=== PATIENT | female | born 1980 | race Caucasian/White ===

== ENCOUNTER 2017-08-05 11:35 | Emergency (ER) | payer OTHER ==
[2017-08-05] MEDS ORDERED: Ondansetron ODT 4 MG TAB ONE (12:33)
[2017-08-05] MEDS ORDERED: Ketorolac Tromethamine 60 MG/2 ML VIAL ONE (12:33)
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
== END 2017-08-05 13:10 | disposition home or self-care (01) ==
LOC: ERS 11:35
DX: M54.5 Low back pain (principal); F17.210 Nicotine dependence, cigarettes, uncomplicated; Z79.891 Long term (current) use of opiate analgesic; Z79.899 Other long term (current) drug therapy; V43.62XA Car passenger injured in collision with other type car in traffic accident, initial encounter
CPT/HCPCS: 72100; 72220; 96372; 99406; J1885; Q0162

== ENCOUNTER 2017-09-17 08:34 | Outpatient (CLI) | payer OTHER ==
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
[2017-09-17] MEDS ORDERED: Gadobenate Dimeglumine 529 MG/1 ML (20ML VIAL) ONE (14:07)
== END 2017-09-17 08:35 | disposition home or self-care (01) ==
LOC: TBSIIMAG 08:34
PROVIDERS: ATTEND Neurological Surgery
DX: M54.5 Low back pain (principal); M54.6 Pain in thoracic spine; M43.16 Spondylolisthesis, lumbar region
CPT/HCPCS: 72146; 72158; A9579

== ENCOUNTER 2018-04-12 08:40 | Outpatient (CLI) | payer OTHER | END 2018-04-12 08:41 | disposition home or self-care (01) | LOC: BICMAMMO 08:40 | PROVIDERS: ATTEND Family Medicine | DX: N63.31 Unspecified lump in axillary tail of the right breast (principal); Z80.3 Family history of malignant neoplasm of breast | CPT/HCPCS: 77066; G0279 ==

== ENCOUNTER 2021-11-15 13:51 | Emergency (ER) | payer OTHER ==
[2021-11-15 14:29] LABS: Bacteria/HPF None Seen HPF (None Seen); Bilirubin Negative (Negative); Blood, Urine 3+ (Negative); Clarity Clear (Clear); Glucose, Urine (Dipstick) Normal (Negative); Ketone, Urine Negative (Negative); Leukocyte Negative Leu/uL (Negative); Nitrite Negative (Negative); Protein, Urine (Dipstick) 30 mg/dL (Neg-Trace); RBC/HPF Greater than 50 HPF (0-3); Specific Gravity, Urine 1.018 (1.002-1.036); Squamous Epithelial 0-3 HPF (0-3); Urobilinogen Normal mg/dL (Less than 2); pH, Urine 6.5 (5.0-9.0)
[2021-11-15 14:32] LABS: #Eosinphils 0.2 thou/uL (0.0-0.7); #Lymphocytes 1.6 thou/uL (1.20-3.40); #Monocytes 0.4 thou/uL (0.11-0.59); %Basophils 0.4 % (0.0-1.0); %Eosinophils 2.7 % (0.0-10.0); %Lymphocytes 26.2 % (21.0-51.0); %Monocytes 6.6 % (0.0-10.0); %Neutrophils 64.2 % (42.0-75.0); Hemoglobin 14.9 g/dL (12.0-16.0); Mean Corpuscular HGB CONC 32.9 g/dL (32.0-36.0); Mean Corpuscular Hemoglobin 27.6 pg (27.0-31.0); Mean Corpuscular Volume 83.8 fL (78.0-98.0); Platelet Count 184 thou/uL (130-400); RBC Distribution Width 12.3 % (11.5-14.5); Red Blood Cell (RBC) Count 5.39 mill/uL (4.20-5.40); White Blood Cell (WBC) Count 6.2 thou/uL (4.8-10.8)
[2021-11-15 14:45] LABS: BHCG - Serum Negative (NEGATIVE); Pregs Control Background? CLEAR/WHITE (CLR/WHITE); Pregs Control Bar Appear? YES (CONTROL BAR)
[2021-11-15] MEDS ORDERED: Ketorolac Tromethamine 30 MG/ML VIAL ONE (14:45)
[2021-11-15 14:47] LABS: ALT (SGPT) 27 U/L (8-55); AST (SGOT) 23 U/L (5-34); Albumin 4.7 g/dL (3.5-5.0); Alkaline Phosphatase 72 U/L (40-110); Anion Gap 10 mmol/L (10-20); BUN (Urea Nitrogen) 15 mg/dL (7.0-18.7); Bilirubin, Total 1.1 mg/dL (0.2-1.2); Calc. Creatinine Clearance 0 mL/min (70-130); Carbon Dioxide 30 mmol/L (22-29); Chloride 103 mmol/L (98-107); Globulin 3.1 g/dL (2.4-3.5); Glucose 105 mg/dL (70-105); Potassium 3.7 mmol/L (3.5-5.1); Protein, Total 7.8 g/dL (6.0-8.3); Sodium 139 mmol/L (136-145)
[2021-11-15] MEDS ORDERED: Morphine 4 MG/ML VIAL ONE (16:11)
== END 2021-11-15 17:42 | disposition home or self-care (01) ==
LOC: ERS 13:51
DX: N20.0 Calculus of kidney (principal); H54.8 Legal blindness, as defined in USA
CPT/HCPCS: 36415; 74176; 80053; 81003; 81015; 84703; 85025; 94760; 96372; 96374; J1885; J2270

== ENCOUNTER 2023-08-20 12:43 | Observation (INO) | payer OTHER ==
[2023-08-20] MEDS ORDERED: fentaNYL PF 100 MCG/2 ML SYRINGE ONE (13:37)
[2023-08-20] MEDS ORDERED: PROPOFOL 20 ML ONE (13:37)
[2023-08-20] MEDS ORDERED: Lidocaine 1% PF 5 ML VIAL ONE ×2 (13:38→13:41)
[2023-08-20] MEDS ORDERED: PROPOFOL 200 MG/20 ML VIAL ONE (13:41)
[2023-08-20] MEDS ORDERED: Ondansetron PF 4 MG/2 ML Vial ONE ×3 (13:41→15:10)
[2023-08-20] MEDS ORDERED: Oxybutynin 5 MG TAB ONE ×2 (14:59→15:19)
[2023-08-20] MEDS ORDERED: Phenazopyridine HCl 100 MG TAB ONE ×2 (14:59→15:19)
[2023-08-20] MEDS ORDERED: fentaNYL 50 mcg/mL 1 mL Vial ONE ×3 (15:00→15:38)
[2023-08-20] MEDS ORDERED: diphenhydrAMINE 50 MG/ML VIAL ONE (15:24)
[2023-08-20] MEDS ORDERED: Promethazine 25 MG TAB ONE (15:24)
[2023-08-20] MEDS ORDERED: hydrALAZINE 20 MG/ML VIAL ONE (15:38)
[2023-08-20] MEDS ORDERED: Promethazine HCl 25 MG SUPP PR SCH (16:30)
[2023-08-20] MEDS ORDERED: HYDROmorphone 0.5 MG/0.5 ML SYRINGE ONE ×2 (16:41→17:32)
[2023-08-20] MEDS ORDERED: Acetaminophen 325 MG TAB PO PRN (17:37)
[2023-08-20] MEDS ORDERED: Ondansetron PF 4 MG/2 ML Vial IVP PRN (17:37)
[2023-08-20] MEDS ORDERED: Ondansetron ODT 4 MG TAB PO PRN (17:37)
[2023-08-20] MEDS ORDERED: Metoclopramide HCl 10 MG/2 ML VIAL IVP PRN (18:02)
[2023-08-20 18:57] LABS: #Monocytes 0.7 thou/uL (0.11-0.59); #Neutrophils 11.8 thou/uL (1.40-6.50); %Basophils 0.2 % (0.0-1.0); %Eosinophils 0.3 % (0.0-10.0); %Lymphocytes 6.2 % (21.0-51.0); %Monocytes 5.4 % (0.0-10.0); %Neutrophils 87.5 % (42.0-75.0); Hematocrit 44.8 % (36.0-47.0); Hemoglobin 14.8 g/dL (12.0-16.0); Mean Corpuscular Hemoglobin 27.4 pg (27.0-31.0); Mean Corpuscular Volume 82.8 fl (78.0-98.0); Mean Platelet Volume 9.3 fL (7.4-10.4); Platelet Count 172 10x3/uL (130-400); Red Blood Cell (RBC) Count 5.41 mill/uL (4.20-5.40); White Blood Cell (WBC) Count 13.5 10x3/uL (4.8-10.8)
[2023-08-20 19:19] LABS: Anion Gap 15 mmol/L (10-20); BUN (Urea Nitrogen) 13 mg/dL (7.0-18.7); Calc. Creatinine Clearance 0 mL/min (70-130); Calcium 8.9 mg/dL (7.8-10.44); Carbon Dioxide 21 mmol/L (22-29); Chloride 105 mmol/L (98-107); Estimated GFR 108; Glucose 126 mg/dL (70-105); Magnesium 1.8 mg/dL (1.6-2.6); Potassium 3.5 mmol/L (3.5-5.1); Sodium 137 mmol/L (136-145)
[2023-08-20] MEDS: Morphine 2 MG/ML VIAL SLOW IVP PRN (20:08)
[2023-08-20] MEDS: Sodium Chloride 0.9% 1,000 ML IV SCH (20:15)
[2023-08-20 22:21] VITALS: BMI 35.6
[2023-08-21] MEDS: Morphine 2 MG/ML VIAL SLOW IVP PRN ×3 (00:14→10:18)
[2023-08-21] MEDS: Sodium Chloride 0.9% 1,000 ML IV SCH (05:20)
[2023-08-21 07:52] VITALS: TEMP 98.5
[2023-08-21] MEDS ORDERED: Phenazopyridine HCl 100 MG TAB PO SCH (09:00)
[2023-08-21] MEDS ORDERED: traMADol HCl 50 MG TAB PO PRN (10:07)
[2023-08-21] MEDS ORDERED: Oxybutynin 5 MG TAB PO SCH ×2 (10:15→15:00)
[2023-08-21 12:03] VITALS: BP 147/88
== END 2023-08-21 12:00 | disposition home or self-care (01) ==
LOC: INTOOBSV 12:43 → 2NO 12:43 → SURG A 18:19
PROVIDERS: ADMIT Urology; ATTEND Internal Medicine
PROC: 0TC18ZZ Extirpation of Matter from Left Kidney, Via Natural or Artificial Opening Endoscopic (ICD-10-PCS; principal; 2023-08-21)
PROC: 0TC08ZZ Extirpation of Matter from Right Kidney, Via Natural or Artificial Opening Endoscopic (ICD-10-PCS; 2023-08-21)
PROC: 0T788DZ Dilation of Bilateral Ureters with Intraluminal Device, Via Natural or Artificial Opening Endoscopic (ICD-10-PCS; 2023-08-21)
DX: N20.1 Calculus of ureter (principal); Z79.899 Other long term (current) drug therapy; R11.2 Nausea with vomiting, unspecified; D72.829 Elevated white blood cell count, unspecified; Z90.49 Acquired absence of other specified parts of digestive tract; Z90.710 Acquired absence of both cervix and uterus
CPT/HCPCS: 36415; 74176; 80048; 80053; 81001; 82365; 83735; 85025; 88300; 93005; 93010; 96374; 96375; 96376; C1747; C1769; C2617; G0378; J0360; J0696; J1170; J1200; J1885; J2270; J2272; J2405; J2704; J2765; J3010; J3490; J7050; Q0169

== ENCOUNTER 2024-09-15 12:54 | Emergency (ER) | payer OTHER ==
[2024-09-15 13:55] LABS: #Basophils 0.03 10x3/uL (0.0-0.2); %Basophils 0.6 % (0.0-1.0); %Eosinophils 3.1 % (0.0-10.0); %Lymphocytes 30.8 % (21.0-51.0); %Monocytes 7.4 % (0.0-10.0); %Neutrophils 57.9 % (42.0-75.0); Hematocrit 42.8 % (36.0-47.0); Hemoglobin 14.2 g/dL (12.0-16.0); Mean Corpuscular HGB CONC 33.2 g/dL (32.0-36.0); Mean Corpuscular Hemoglobin 26.8 pg (27.0-31.0); Mean Corpuscular Volume 80.8 fL (78.0-98.0); Mean Platelet Volume 9.4 fL (7.4-10.4); Platelet Count 192 10x3/uL (130-400); RBC Distribution Width 13.2 % (11.5-14.5)
[2024-09-15 14:03] LABS: BHCG - Serum Negative (NEGATIVE); Pregs Control Background? CLEAR/WHITE (CLR/WHITE); Pregs Control Bar Appear? YES (CONTROL BAR)
[2024-09-15 14:12] LABS: ALT (SGPT) 12 U/L (8-55); AST (SGOT) 15 U/L (5-34); Albumin 4.1 g/dL (3.5-5.0); Alkaline Phosphatase 57 U/L (40-110); Anion Gap 12 mmol/L (10-20); BUN (Urea Nitrogen) 11 mg/dL (7.0-18.7); Bilirubin, Total 1.1 mg/dL (0.2-1.2); Calc. Creatinine Clearance 0 mL/min (70-130); Calcium 9.3 mg/dL (7.8-10.44); Carbon Dioxide 23 mmol/L (22-29); Chloride 108 mmol/L (98-107); Estimated GFR 105; Globulin 3.1 g/dL (2.4-3.5); Glucose 90 mg/dL (70-105); Potassium 4.1 mmol/L (3.5-5.1); Protein, Total 7.2 g/dL (6.0-8.3); Sodium 139 mmol/L (136-145)
[2024-09-15] MEDS ORDERED: Morphine 4 MG/ML VIAL ONE ×2 (15:31→15:33)
[2024-09-15] MEDS ORDERED: Ketorolac Tromethamine 30 MG (1 mL) VIAL ONE (15:32)
[2024-09-15] MEDS ORDERED: Ondansetron PF 4 MG/2 ML Vial ONE (15:32)
[2024-09-15 15:55] LABS: Bacteria/HPF None Seen HPF (None Seen); Bilirubin Negative (Negative); Blood, Urine 3+ (Negative); CAUTI Indications for Culture Dysuria,urgency,freq; Clarity Clear (Clear); Glucose, Urine (Dipstick) Normal (Negative); Ketone, Urine Negative (Negative); Leukocyte Negative Leu/uL (Negative); Nitrite Negative (Negative); Protein, Urine (Dipstick) 10 mg/dL (Neg-Trace); RBC/HPF Greater than 50 HPF (0-3); Specific Gravity, Urine 1.021 (1.002-1.036); Squamous Epithelial None Seen HPF (0-3); Urobilinogen Normal mg/dL (Less than 2); pH, Urine 6.5 (5.0-9.0)
[2024-09-15 16:01] LABS: Urine Culture Reflex No No
== END 2024-09-15 16:26 | disposition home or self-care (01) ==
LOC: ERS 12:54
DX: N20.1 Calculus of ureter (principal); R31.29 Other microscopic hematuria; I10 Essential (primary) hypertension; F17.290 Nicotine dependence, other tobacco product, uncomplicated; Z79.899 Other long term (current) drug therapy
CPT/HCPCS: 36415; 74176; 80053; 81001; 84703; 85025; 87086; 96374; 96375; J1885; J2272; J2405